=== PATIENT | male | born 1980 | race Caucasian/White ===

== ENCOUNTER 2025-01-25 23:53 | Emergency (ER) | payer MEDICAID, SELFPAY ==
[2025-01-26 00:01] VITALS: PULSE 94; RESP 20; TEMP 36.7; O2SAT 97; BMI 57.9
--- NOTE | 2025-01-26 00:59 | ED.SKABFB ---
HPI - Skin/Abscess/Foreign Bdy General Chief complaint: Skin/Abscess/Foreign Body Stated complaint: Rash Time Seen by Provider: 01/26/25 00:58 Source: patient Mode of arrival: ambulatory Limitations: no limitations History of Present Illness ED Provider: HPI narrative: Patient is diabetic on oral hypoglycemic does not have any glucometer at home not checking your blood sugar comes here for rash in scrotal area for last few days patient has been followed by primary care doctor used to be on insulin before now only only on oral hypoglycemic Related Data Previous Rx's ?Medication ?Instructions ?Recorded blood-glucose meter #1 ea 01/26/25 clotrimazole 1 % topical cream 1 appl topical BID #45 grams 01/26/25 doxycycline hyclate 100 mg tablet 100 mg PO BID #20 tabs 01/26/25 insulin glargine 100 unit/mL (3 20 unit (0.2 mL) subcut QPM #15 mL 01/26/25 mL) subcutaneous pen (Lantus Solostar U-100 Insulin) Allergies Allergy/AdvReac Type Severity Reaction Status Date / Time Penicillins Allergy Hives Verified 01/26/25 00:03 bee pollen [bee stings] AdvReac Hives Verified 01/26/25 00:04 Review of Systems Review of Systems: Yes all other systems are reviewed and are negative [facility] Social History Social History Advance Directives: No Advance Directives Information Provided: No Do you have a plan to hurt others: No Plan Physical Exam Vital Signs: Vital Signs: Last Vital Signs Temp 98.0 F 01/26/25 00:01 Pulse 94 01/26/25 00:01 Resp 20 01/26/25 00:01 Pulse Ox 97 01/26/25 00:01 O2 Del Method Room Air 01/26/25 00:01 BMI result Body Mass Index 57.9 Appearance: Alert. Oriented X3. No acute distress. Obese Eyes: PERRLA, No Nystagmus ENT: Pharynx normal. Oral Mucosa moist Neck: Normal inspection. Neck supple. CVS: Normal heart rate and rhythm. Pulses normal. Respiratory: No respiratory distress. Equal air entry bilateral, no wheezing/rales/rhonchi Abdomen: Soft and nontender. Bowel sounds are present, no mass palpable, no CVA tenderness Skin: Skin warm and dry. Erythema of the scrotum no penile discharge no fluid collection Extremities: No lower extremity edema. No calf tenderness Neuro: Oriented X 3. No motor deficit. No sensory deficit.No cerebellar signs , cranial nerves II-XII intact Medical Decision Making Medical Decision Making [facility] Narrative: Patient is hyperglycemic noncompliant to diabetes comes here for scrotal inflammation clinically patient has yeast infection with slight cellulitis will prescribe him nystatin powder along with cephalexin as patient's blood sugar is elevated will do the labs give IV fluids Lantus and Humalog tonight advised to follow up with his PCP in a.m. Patient is signed out to Dr. Naylor pending labs Lab Data [facility] Lab Attestation statement: I reviewed the patient's lab results. Labs: Lab Results 01/26/25 01/26/25 Range/Units 01:16 02:02 POC Glucose 416 H* 416 H* (60-115) mg/dL Discharge Plan Discharge Clinical Impression: Cellulitis, Tinea cruris, Diabetes mellitus with hyperglycemia Patient Disposition: Still a Patient Instructions: Cellulitis (ED), Diabetic Hyperglycemia (ED), Skin Yeast Infection (ED) Additional Instructions: Apply antifungal cream as prescribed along with take antibiotics Continue take your medication for diabetes and follow up with your PCP for hyperglycemia Start taking Lantus every day Check your blood sugar Prescriptions: New insulin glargine [Lantus Solostar U-100 Insulin] 100 unit/mL (3 mL) insulin pen 20 unit subcut QPM Qty: 15 0RF (DME) blood-glucose meter Kit See Rx Instructions .Route Qty: 1 0RF Rx Instructions: As directed doxycycline hyclate 100 mg tablet 100 mg PO BID Qty: 20 0RF clotrimazole 1 % cream 1 appl topical BID Qty: 45 0RF Print Language: Portuguese
--- OUTSIDE RECORDS SUMMARY | 2025-01-26 01:11 | XMS_ITS | Clinical Summary ---
Author Organization [facility] ity Address [address] [place] [address] Care Team Providers Care Human Resource Statistician Name Role Phone Unavailable Primary Care Provider Unavailabl e Social History Tobacco Use Types Packs/Day Years Used Date Smoking Tobacco: Never Assessed Sex and Gender Information Value Date Recorded Sex Assigned at Not on file Legal Sex Male 1:42 PM EDT Gender Identity Not on file Sexual Orientation Not on file Plan of Treatment Health Maintenance Due Date Last Done Comments DTaP,Tdap,and Td Vaccines (1 - Tdap) 1997 Hepatitis B Vaccines (1 of 3 - 19+ 3-dose series) 1997 COVID-19 Vaccine (2023-2 5 season) 2024 Cholesterol Screening (Lipid Panel) 06/01/2024 Colorectal Cancer Screening: Colonoscopy 06/01/2024 Depression Screening 06/01/2024 HIV Screening 06/01/2024 Hepatitis C Screening 06/01/2024 Social Influencers of Health Screening 06/01/2024 Influenza Vaccine (Season Ended) 2025 HIB Vaccines Aged Out No longer eligi ble based on patient's age to complete this topic HPV Vaccines Aged Out No longer eligi ble based on patient's age to complete this topic Hepatitis A Vaccines Aged Out No long er eligible based on patient's age to complete this topic IPV Vaccines Aged Out No longer eligi ble based on patient's age to complete this topic MMR Vaccines Aged Out No longer eligi ble based on patient's age to complete this topic Meningococcal ACWY Vaccine Aged Out N o longer eligible based on patient's age to complete this topic Meningococcal B Vaccine Aged Out No l onger eligible based on patient's age to complete this topic Pneumococcal Vaccine: Pediat rics (0 to 5 Years) and At-Risk Patients (6 to 64 Years) Aged Out No longer eligible b ased on patient's age to complete this topic RSV Immunization Patients Un gini 20 months Aged Out No longer eligible b ased on patient's age to complete this topic Varicella Vaccines Aged Out No longer eligible based on patient's age to complete this topic
[2025-01-26 01:21] LABS: Glucose, Whole Blood 416 mg/dL (60-115)
[2025-01-26 02:06] LABS: Glucose, Whole Blood 416 mg/dL (60-115)
[2025-01-26] MEDS: Insulin Glargine,Hum.rec.anlog 100 UNIT/ML 10 ML VIAL 20 UNIT SUBCUT (02:09)
[2025-01-26] MEDS: Fluconazole 150 MG TABLET PO (02:09)
[2025-01-26] MEDS: Doxycycline Monohydrate 100 MG CAPSULE PO (02:09)
[2025-01-26] MEDS: Insulin Lispro 100 UNIT/ML 3 ML VIAL 8 UNIT SUBCUT (02:10)
[2025-01-26] MEDS: 0.9 % Sodium Chloride 1,000 ML 999 ML IV (02:16)
[2025-01-26 02:21] LABS: Basophils Absolute Auto 0.1 X10*3/uL (0.0-0.2); Eosinophils Absolute Auto 0.1 X10*3/uL (0.0-0.4); Eosinophils Percent Auto 1.8 % (0-4); Hematocrit 41.7 % (42.0-52.0); Hemoglobin 13.7 g/dl (14.0-18.0); Imm Gran Abs Auto 0.03 X10*3/uL (0.00-0.03); Imm Gran Pct Auto 0.4 % (0.0-0.4); Lymphocytes Absolute Auto 2.4 X10*3/uL (1.2-4.9); Lymphocytes Percent Auto 30.4 % (20-40); MANUAL DIFF FLAG NO; Mean Corpuscular HGB Conc 32.9 g/dl (31.0-36.0); Mean Platelet Volume 9.9 fL (9.4-12.4); Monocytes Percent Auto 12.3 % (2-11); Neutrophils Absolute Auto 4.3 x10*3/uL (2.0-8.3); Neutrophils Percent Auto 54.1 % (45-73); Platelet Count 225 X10*3/uL (160-400); Red Blood Count 5.49 X10*6/uL (4.60-5.80); Red Cell Distribution Width 13.3 % (11.0-16.0)
[2025-01-26 02:36] VITALS: BP 136/84; PULSE 87; RESP 17; TEMP 36.4; O2SAT 97
[2025-01-26 02:46] LABS: Alkaline Phosphatase 100 U/L (39-117)
[2025-01-26 02:48] LABS: Alanine Aminotransferase 28 U/L (0-40); Albumin Level 4.3 g/dL (3.5-5.0); Anion Gap 15 (12-20); Aspartate Amino Transferase 22 U/L (5-37); Bilirubin Total 0.4 mg/dL (0.0-1.0); Blood Urea Nitrogen 22 mg/dL (9-16); Calcium 9.6 mg/dL (8.4-10.2); Carbon Dioxide 27 mmol/L (22-29); Chloride 99 mmol/L (96-108); Creatinine Clr Calc Pharmacy 135.5; Estimated Glomerular Filt Rate > 60; Glucose Random 397 mg/dL (60-115); Potassium 4.1 mmol/L (3.3-5.1); Sodium 137 mmol/L (135-145); Total Protein 7.2 g/dL (6.5-8.0)
--- NOTE | 2025-01-26 03:15 | PC.NURSE ---
IVF infused at this time. Pt received 1L of NS.
[2025-01-26 04:47] VITALS: BP 144/88; PULSE 82; RESP 22; O2SAT 97
[2025-01-26 04:47] LABS: Glucose, Whole Blood 294 mg/dL (60-115)
[2025-01-26 05:47] VITALS: BP 144/88; PULSE 82; RESP 22; TEMP 36.7; O2SAT 97
== END 2025-01-26 05:49 | disposition still patient (30) ==
PROVIDERS: Internal Medicine; Emergency Provider Emergency Medicine
DX: L03.90 Cellulitis, unspecified (principal); N49.2 Inflammatory disorders of scrotum; B35.6 Tinea cruris; E11.65 Type 2 diabetes mellitus with hyperglycemia; Z79.4 Long term (current) use of insulin; Z79.899 Other long term (current) drug therapy
CPT/HCPCS: 36415; 80053; 82947; 85025; 99283; 99284